=== PATIENT | male | born 1980 | race Caucasian/White ===

== ENCOUNTER 2022-08-13 18:21 | Emergency (ER) | payer SELFPAY ==
[~2022-08-13] VITALS: Ht 172.7 cm; Wt 70.3 kg
[2022-08-13 18:32] VITALS: BP 113/66
[2022-08-13 19:00] VITALS: BP 113/66
[2022-08-13] MEDS ORDERED: IBUP-2213 PO (19:06)
--- NOTE | 2022-08-13 19:25 | NUR ---
Patient discharged with v/s stable. Written and verbal after care instructions given and explained. Patient verbalized understanding. Ambulatory with steady gait. All questions addressed prior to discharge. Advised to follow up with PMD.
== END 2022-08-13 19:25 | disposition home or self-care (01) ==
LOC: MED 18:21
DX: S93.492A Sprain of other ligament of left ankle, initial encounter (principal); X58.XXXA Exposure to other specified factors, initial encounter; Y93.89 Activity, other specified; Y92.89 Other specified places as the place of occurrence of the external cause; Y99.8 Other external cause status
CPT/HCPCS: 73610; 99283